=== PATIENT | female | born 1985 | race American Indian/Alaskan Native ===

== ENCOUNTER 2017-12-21 11:37 | Emergency (ER) | payer BC ==
[2017-12-21 11:54] VITALS: BP 141/86
--- NOTE | 2017-12-21 12:23 | Emergency Department Report ---
ED Burn/Smoke HPI - General Chief complaint: Extremity Injury, Lower Stated complaint: RIGHT FOOT INJURY Time Seen by Provider: 12/21/17 12:15 Source: patient Mode of arrival: Ambulatory Limitations: No Limitations - History of Present Illness Initial comments: Patient suffered a burn to the right dorsum of the foot just proximal to the toes approximately 1 week ago. Patient been using Silvadene cream and has been doing relatively well however the last several days she has noted some purulent drainage increased pain. Patient denies any fevers chills nausea vomiting at this time. Patient states pain is worse when she walks. Patient's pain is a 7 out of 10 and throbbing. - Related Data Previous Rx's Medication Instructions Recorded Last Taken Type Clindamycin [Clindamycin CAP] 300 mg PO Q8H 7 Days cap 12/21/17 Unknown Rx Ibuprofen [Motrin] 600 mg PO Q8H PRN #20 tablet 12/21/17 Unknown Rx traMADol [Ultram] 50 mg PO Q6HR PRN #12 tablet 12/21/17 Unknown Rx Allergies Allergy/AdvReac Type Severity Reaction Status Date / Time No Known Allergies Allergy Verified 12/21/17 11:54 Burn HPI - History Stated Complaint: RIGHT FOOT INJURY Chief Complaint: Extremity Injury, Lower Time Seen by Provider: 12/21/17 12:15 - Home Meds and Allergies Home Medications: Previous Rx's Medication Instructions Recorded Last Taken Type Clindamycin [Clindamycin CAP] 300 mg PO Q8H 7 Days cap 12/21/17 Unknown Rx Ibuprofen [Motrin] 600 mg PO Q8H PRN #20 tablet 12/21/17 Unknown Rx traMADol [Ultram] 50 mg PO Q6HR PRN #12 tablet 12/21/17 Unknown Rx Allergies/Adverse Reactions: Allergies Allergy/AdvReac Type Severity Reaction Status Date / Time No Known Allergies Allergy Verified 12/21/17 11:54 ED Review of Systems ROS: Stated complaint: RIGHT FOOT INJURY Other details as noted in HPI Comment: All other systems reviewed and negative ED Past Medical Hx - Past Medical History Previous Medical History?: No - Surgical History Past Surgical History?: No - Social History Smoking Status: Never Smoker Substance Use Type: Alcohol - Medications Home Medications: Home Medications Medication Instructions Recorded Confirmed Last Taken Type Clindamycin [Clindamycin CAP] 300 mg PO Q8H 7 Days cap 12/21/17 Unknown Rx Ibuprofen [Motrin] 600 mg PO Q8H PRN #20 tablet 12/21/17 Unknown Rx traMADol [Ultram] 50 mg PO Q6HR PRN #12 tablet 12/21/17 Unknown Rx ED Physical Exam - General Limitations: No Limitations General appearance: alert, in no apparent distress - Head Head exam: Present: atraumatic, normocephalic - Eye Eye exam: Present: normal appearance - ENT ENT exam: Present: mucous membranes moist - Neck Neck exam: Present: normal inspection - Respiratory Respiratory exam: Present: normal lung sounds bilaterally. Absent: respiratory distress - Cardiovascular Cardiovascular Exam: Present: regular rate, normal rhythm. Absent: systolic murmur, diastolic murmur, rubs, gallop - GI/Abdominal GI/Abdominal exam: Present: soft, normal bowel sounds - Extremities Exam Extremities exam: Present: normal inspection - Back Exam Back exam: Present: normal inspection - Neurological Exam Neurological exam: Present: alert, oriented X3 - Psychiatric Psychiatric exam: Present: normal affect, normal mood - Skin Skin exam: Present: warm, dry, intact, normal color, other (on the dorsum of the right foot just adjacent to the toes patient has a burn that is in mental status healing. Good granulation tissue however centrally there is approximately a nickel-sized area of erythema is surface purulence.). Absent: rash ED Course Vital Signs 12/21/17 11:49 Temperature 98.7 F Pulse Rate 82 Respiratory 16 Rate Blood Pressure 141/86 O2 Sat by Pulse 100 Oximetry ED Medical Decision Making - Medical Decision Making Pt to be started on antibiotics for possible early infection. Patient also given meds for pain control and be discharged home. Critical care attestation.: If time is entered above; I have spent that time in minutes in the direct care of this critically ill patient, excluding procedure time. ED Disposition Clinical Impression: Cellulitis Qualifiers: Site of cellulitis: extremity Site of cellulitis of extremity: lower extremity Laterality: right Qualified Code(s): L03.115 - Cellulitis of right lower limb Disposition: - TO HOME OR SELFCARE Is pt being admited?: No Does the pt Need Aspirin: No Condition: Stable Instructions: Partial Thickness Burn (ED), Cellulitis (ED) Referrals: PRIMARY CARE, [Primary Care Provider] - 3-5 Days
[2017-12-21] MEDS ORDERED: MOTRIN PO ONE (12:36)
--- NOTE | 2017-12-21 13:08 | Emergency Department Report ---
ED Extremity Problem HPI - General Chief complaint: Extremity Injury, Lower Stated complaint: RIGHT FOOT INJURY Time Seen by Provider: 12/21/17 12:15 Source: patient Mode of arrival: Ambulatory Limitations: No Limitations - History of Present Illness Initial comments: Patient is a 32-year-old female who is presenting with a right foot injury. Patient states she was walking up some stairs was an open top shoes and she hit the concrete and scraped the top of her foot and fell. Patient states that the pain is throbbing sensation is 6 out of 10 in severity. It is very minimal bleeding with the scraped. Patient is able to bear weight but with a limp. Patient has no other injuries at this time. Severity scale (0 -10): 6 - Related Data Previous Rx's Medication Instructions Recorded Last Taken Type Ibuprofen [Motrin] 600 mg PO Q8H PRN #20 tablet 12/21/17 Unknown Rx traMADol [Ultram] 50 mg PO Q6HR PRN #12 tablet 12/21/17 Unknown Rx Allergies Allergy/AdvReac Type Severity Reaction Status Date / Time No Known Allergies Allergy Verified 12/21/17 11:54 ED Review of Systems ROS: Stated complaint: RIGHT FOOT INJURY Other details as noted in HPI Comment: All other systems reviewed and negative ED Past Medical Hx - Past Medical History Previous Medical History?: No - Surgical History Past Surgical History?: No - Social History Smoking Status: Never Smoker Substance Use Type: Alcohol - Medications Home Medications: Home Medications Medication Instructions Recorded Confirmed Last Taken Type Ibuprofen [Motrin] 600 mg PO Q8H PRN #20 tablet 12/21/17 Unknown Rx traMADol [Ultram] 50 mg PO Q6HR PRN #12 tablet 12/21/17 Unknown Rx ED Physical Exam - General Limitations: No Limitations General appearance: alert, in no apparent distress - Head Head exam: Present: atraumatic, normocephalic - Eye Eye exam: Present: normal appearance - ENT ENT exam: Present: mucous membranes moist - Neck Neck exam: Present: normal inspection - Respiratory Respiratory exam: Present: normal lung sounds bilaterally. Absent: respiratory distress, wheezes, rales, rhonchi - Cardiovascular Cardiovascular Exam: Present: regular rate, normal rhythm. Absent: systolic murmur, diastolic murmur, rubs, gallop - GI/Abdominal GI/Abdominal exam: Present: soft, normal bowel sounds - Extremities Exam Extremities exam: Present: normal inspection, other (patient has an abrasion to the mid dorsum of the right foot. Patient has pain with palpation diffusely. Patient is able to move her toes but with decreased range of motion secondary to pain.) - Back Exam Back exam: Present: normal inspection - Neurological Exam Neurological exam: Present: alert, oriented X3 - Psychiatric Psychiatric exam: Present: normal affect, normal mood - Skin Skin exam: Present: warm, dry, intact, normal color. Absent: rash ED Course Vital Signs 12/21/17 12/21/17 11:49 12:41 Temperature 98.7 F Pulse Rate 82 Respiratory 16 20 Rate Blood Pressure 141/86 O2 Sat by Pulse 100 Oximetry ED Medical Decision Making - Radiology Data interpreted by me: X-ray of the right foot shows no acute process - Medical Decision Making No fracture was seen with the patient's foot. Patient will be splinted with associated and given meds for symptomatic relief. Critical care attestation.: If time is entered above; I have spent that time in minutes in the direct care of this critically ill patient, excluding procedure time. ED Disposition Clinical Impression: Abrasion, Other sprain of foot Disposition: DC-01 TO HOME OR SELFCARE Is pt being admited?: No Does the pt Need Aspirin: No Condition: Stable Instructions: Abrasion (ED), Foot Sprain (ED) Prescriptions: Ibuprofen [Motrin] 600 mg PO Q8H PRN #20 tablet PRN Reason: Pain traMADol [Ultram] 50 mg PO Q6HR PRN #12 tablet PRN Reason: Pain Referrals: PRIMARY CARE,MD [Primary Care Provider] - 3-5 Days
--- NOTE | 2017-12-21 16:28 | XRay Report ---
FINAL REPORT EXAM: XR FOOT 3+V RT HISTORY: injury/ RT FOOT PAIN TECHNIQUE: Three views right foot. PRIORS: None currently available. FINDINGS: There is no acute fracture. There is no evidence for healing fracture. There is no acute dislocation. Joints in anatomical position. No significant arthrosis. Small Achilles enthesophyte. There is no cortical destruction to suggest osteomyelitis. There are no suspicious osseous lesions. There are no radiopaque foreign objects. IMPRESSION: No acute osseous findings. Small Achilles enthesophyte.
== END 2017-12-21 14:42 | disposition home or self-care (01) ==
LOC: ED 11:37
DX: S93.601A Unspecified sprain of right foot, initial encounter (principal); W18.09XA Striking against other object with subsequent fall, initial encounter; Y93.89 Activity, other specified; Y99.8 Other external cause status; Y92.89 Other specified places as the place of occurrence of the external cause

== ENCOUNTER 2019-02-27 06:39 | Inpatient (IN) | payer BC, MEDICAID ==
[2019-02-27 08:47] LABS: Basophils # (Auto) 0.1 K/mm3 (0.0-0.1); Basophils % (Auto) 0.5 % (0.0-1.8); Eosinophils # (Auto) 0.1 K/mm3 (0.0-0.4); Eosinophils % (Auto) 0.5 % (0.0-4.3); Hematocrit 40.1 % (30.3-42.9); Hemoglobin 13.5 gm/dl (10.1-14.3); Lymphocytes # (Auto) 1.4 K/mm3 (1.2-5.4); Lymphocytes % (Auto) 13.1 % (13.4-35.0); Mean Corpuscular HGB Conc 34 % (30-34); Mean Corpuscular Volume 93 fl (79-97); Monocytes # (Auto) 0.5 K/mm3 (0.0-0.8); Monocytes % (Auto) 5.1 % (0.0-7.3); Platelet Count 267 K/mm3 (140-440); Red Cell Distribution Width 13.9 % (13.2-15.2)
[2019-02-27] MEDS ORDERED: SUBLIMAZE IV PRN (09:00)
[2019-02-27] MEDS: LACTATED RINGERS 1,000 ML IV SCH ×2 (09:59→18:20)
[2019-02-27] MEDS ORDERED: AMPICILLIN/NS 2 GM/100 ML 2 GM/100 ML BAG IV ONE (10:00)
[2019-02-27] MEDS ORDERED: PITOCin/NS 30 UNIT/500ML 30 UNITS/500 ML BAG IV SCH (10:00)
[2019-02-27] MEDS ORDERED: STADOL IV PRN (16:54)
[2019-02-27] MEDS ORDERED: ZOFRAN ONE (17:00)
[2019-02-27] MEDS ORDERED: PHENERGAN PO ONE (17:00)
[2019-02-27] MEDS ORDERED: NARCAN 2 MG/2 ML IV PRN (20:28)
--- NOTE | 2019-02-27 20:30 | Anesthesia Consultation ---
Anesthesia Consult and Med Hx Date of service: 02/27/19 - Airway Anesthetic Teeth Evaluation: Good ROM Head & Neck: Adequate Mental/Hyoid Distance: Adequate Mallampati Class: Class II Intubation Access Assessment: Probably Good - Pulmonary Exam CTA: Yes - Cardiac Exam Cardiac Exam: RRR - Pre-Operative Health Status ASA Pre-Surgery Classification: ASA2 Proposed Anesthetic Plan: Epidural - Pulmonary Hx Asthma: No COPD: No Hx Pneumonia: No - Cardiovascular System Hx Hypertension: No - Central Nervous System Hx Seizures: No Hx Psychiatric Problems: No - Endocrine Hx Renal Disease: No Hx End Stage Renal Disease: No Hx Hypothyroidism: No Hx Hyperthyroidism: No - Hematic Hx Anemia: No Hx Sickle Cell Disease: No - Other Systems Hx Alcohol Use: No Hx Obesity: Yes
[2019-02-27] MEDS ORDERED: fentaNYL-BUPIV 2 MCG/ML-0.125% 200 MCG/100 ML BAG EPIDURAL SCH (21:00)
[2019-02-28] MEDS ORDERED: PITOCin/NS 20 UNIT/1000ML DRIP 20,000 MILLIUNITS/1,000 ML BAG IV ONE ×2 (00:18→02:36)
--- NOTE | 2019-02-28 00:25 | History and Physical Report ---
History of Present Illness Date of examination: 02/28/19 Date of admission: 02/27/2019 Chief complaint: My water broke History of present illness: Pt is a 33 year old who presents in with SROm at 38.6 weeks and EDc 03/07/2019. She has had an uncomplicated course. She is GBS negative. Past History Past Medical History: other (PCOS) Past Surgical History: no surgical history THERMAL MOLDER History: herpes Family/Genetic History: none Social history: - Obstetrical History Expected Date of Delivery: 03/07/19 Actual Gestation: 39 Week(s) 0 Day(s) : 1 Medications and Allergies Allergies Allergy/AdvReac Type Severity Reaction Status Date / Time pollen extracts Allergy Itching Verified 02/27/19 08:18 Home Medications Medication Instructions Recorded Confirmed Last Taken Type No Known Home Medications [No 02/27/19 02/27/19 Unknown History Reported Home Medications] Active Meds: Active Medications Butorphanol Tartrate (Stadol) 2 mg IV Q2H PRN PRN Reason: Labor Pain Last Admin: 02/27/19 17:10 Dose: 2 mg Documented by: Ephedrine Sulfate (Ephedrine Sulfate) 10 mg IV Q2M PRN PRN Reason: Hypotension Fentanyl (Sublimaze) 100 mcg IV ONCE PRN PRN Reason: Labor Pain Last Admin: 02/27/19 13:36 Dose: 100 mcg Documented by: Lactated Ringer's (Lactated Ringers) 1,000 mls @ 125 mls/hr IV DIRECT DAVID Last Admin: 02/27/19 18:20 Dose: 125 mls/hr Documented by: Oxytocin/Sodium Chloride (Pitocin/Ns 30 Unit/500ml) 30 units in 500 mls @ 4 mls/hr IV TITR DAVID; Protocol Last Titration: 02/27/19 22:46 Dose: 2 milliunits/min, 2 mls/hr Documented by: Fentanyl/Bupivacaine/Sodium Chlor (Fentanyl-Bupiv 2 Mcg/Ml-0.125%) 200 mcg in 100 mls @ 12 mls/hr EPIDURAL TITR DAVID; Protocol Last Admin: 02/27/19 21:43 Dose: 12 mls/hr Documented by: Naloxone HCl (Narcan 2 Mg/2 Ml) 0.2 mg IV Q5M PRN PRN Reason: Respiratory sedation Review of Systems All systems: negative Constitutional: fatigue, lethargy Respiratory: shortness of breath Genitourinary: leakage of fluid, contractions Rectal Exam: deferred - Vital Signs Vital signs: Vital Signs Pulse BP 81 134/81 02/27/19 07:04 02/27/19 07:04 Temp Pulse Resp BP Pulse Ox 99.3 F 63 20 118/67 100 02/27/19 16:26 02/28/19 00:16 02/27/19 08:15 02/28/19 00:14 02/28/19 00:16 - Physical Exam Breasts: Positive: deferred Cardiovascular: Regular rate, Normal S1, Normal S2 Lungs: Positive: Clear to auscultation, Normal air movement Abdomen: Positive: normal appearance, soft, normal bowel sounds Genitourinary (Female): Positive: normal external genitalia, normal perenium Vulva: both: normal Vagina: Positive: normal moisture Uterus: Positive: normal size - Obstetrical FHR: auscultation normal Cervical Dilatation: 1 Cervical Effacement Percentage: 90 station: -2 Uterine Contraction Pattern: Irregular Uterine Contraction Intensity: Moderate Results Result Diagrams: 02/27/19 08:30 Abnormal lab results 02/27/19 Range/Units 08:30 Lymph % (Auto) 13.1 L (13.4-35.0) % Seg Neutrophils % 80.8 H (40.0-70.0) % Seg Neutrophils # 8.5 H (1.8-7.7) K/mm3 All other labs normal. Assessment and Plan IUP at 38.6 weeks with prom. Admit to L&D. Augment with pitocin. Anticipate .
--- NOTE | 2019-02-28 02:02 | Procedure Note ---
OB Delivery Note - Delivery Date of Delivery: 02/28/19 Surgeon: NAYAN WRIGHT Estimated blood loss: 200cc - Vaginal Delivery presentation: vertex Delivery position: OA Intrapartum events: PROM->1hr before delivery Delivery induction: none Delivery augmentation: pitocin Delivery monitor: external FHT, external uterine Route of delivery: Delivery placenta: spontaneous Delivery cord: 3 umbilical vessels Episiotomy: none Delivery laceration: vaginal side wall Anesthesia: epidural Delivery comments: Viable female delivered over intact perineum with apgars 8,9 and weirght 2481grams/ 5 pounds 8 ounces at 0136. placed on maternal abdomen. Cord clamped and cut when done pulsating. Placenta delivered spontaneously and intact with 3vc. Periurethral Lacerations hemostatic and not repaired. Pt tolerated procedure well. Excellent hemostasis. - Infant A at 1 minute: 8 at 5 minutes: 9 Gender: Female
[2019-02-28] MEDS ORDERED: DULCOLAX PR PRN (05:23)
[2019-02-28] MEDS ORDERED: PHENERGAN PR PRN (05:23)
[2019-02-28] MEDS ORDERED: SODIUM CHLORIDE FLUSH SYRINGE 10 ML IV NR (05:23)
[2019-02-28] MEDS ORDERED: TYLENOL PO PRN (05:23)
[2019-02-28] MEDS ORDERED: ZOFRAN IV PRN (05:23)
[2019-02-28] MEDS ORDERED: PHENERGAN PO PRN (05:23)
[2019-02-28] MEDS ORDERED: BENADRYL PO PRN (05:23)
[2019-02-28] MEDS ORDERED: TUCKS PAD TP PRN (05:23)
[2019-02-28] MEDS ORDERED: MILK OF MAGNESIA PO PRN (05:23)
[2019-02-28] MEDS ORDERED: LANSINOH TP PRN (05:23)
[2019-02-28] MEDS ORDERED: NORCO 5/325 PO PRN (05:23)
[2019-02-28] MEDS ORDERED: PITOCin/NS 20 UNIT/1000ML DRIP 20 UNITS/1,000 ML BAG IV SCH (06:00)
[2019-02-28] MEDS: COLACE PO SCH ×2 (10:23→23:15)
[2019-02-28] MEDS: PRENATAL VITAMIN PO SCH ×2 (10:23→10:31)
[2019-02-28] MEDS: IBUPROFEN PO SCH ×4 (10:32→23:15)
[2019-02-28 15:05] LABS: Hematocrit 37.1 % (30.3-42.9); Hemoglobin 12.3 gm/dl (10.1-14.3)
[2019-03-01] MEDS: IBUPROFEN PO SCH (05:05)
--- NOTE | 2019-03-01 08:37 | Progress Note ---
Assessment and Plan PPD 1 s/p . doing well. Plan for discharge on today if baby ready to go. Pt given nipple shield to liner helper with nursing. Subjective - Subjective Date of service: 03/01/19 Interval history: Pt is a 33 year old at PPD1. Pt is trying to breastfeed but having difficulties due to flattened nipples. Patient reports: appetite normal, voiding normally, pain well controlled, ambulating normally : doing well Objective - Vital Signs Latest vital signs: Vital Signs Temp Pulse Resp BP BP Pulse Ox 02/28/19 17:43 99.0 F 82 18 126/67 98 02/28/19 08:39 98.2 F 79 18 119/63 96 Intake and Output 02/28/19 03/01/19 03/01/19 22:59 06:59 14:59 Intake Total 1080 Balance 1080 Intake: Oral 360 Intake, Free Water 720 Other: Total, Intake Amount 360 # Voids Void 1 - Exam Breasts: Present: deferred Cardiovascular: Present: Regular rate, Normal S1, Normal S2 Lungs: Present: Clear to auscultation, Normal air movement Uterus: Present: normal, firm Extremities: Present: normal
--- NOTE | 2019-03-01 08:42 | Discharge Summary ---
Providers - Providers Date of Admission: 02/28/19 02:12 Date of discharge: 03/01/19 Attending physician: NAYAN WRIGHT Primary care physician: NAYAN WRIGHT Hospitalization Reason for admission: active labor Delivery: Laceration: none Other procedures: tubal ligation complications: none Discharge diagnosis: IUP at term delivered baby: female Hospital course: unremarkable Condition at discharge: Good Disposition: DC-01 TO HOME OR SELFCARE Plan - Discharge Medications Prescriptions: Ibuprofen [Motrin] 800 mg PO Q8HR PRN #40 tablet PRN Reason: Pain, Moderate (4-6) HYDROcodone/APAP 5-325 [[place] 5/325] 1 each PO Q4HR PRN #15 tablet PRN Reason: Pain - Provider Discharge Summary Activity: routine, no sex for 6 weeks, no heavy lifting 4 weeks, no strenuous exercise Diet: routine Instructions: routine Additional instructions: [] Smoking cessation referral if applicable(refer to patient education folder for contact #) [] Refer to [facility]'s [facility] Booklet Call your doctor immediately for: * Fever > 100.5 * Heavy vaginal bleeding ( >1 pad per hour) * Severe persistent headache * Shortness of breath * Reddened, hot, painful area to leg or breast * Drainage or odor from incision. * Keep incision clean and dry at all times and follow doctor's instructions regarding bathing/showering - Follow up plan Follow up: NAYAN WRIGHT MD [Primary Care Provider] - 6 Weeks
[2019-03-01] MEDS: PRENATAL VITAMIN PO SCH (09:50)
[2019-03-01] MEDS: COLACE PO SCH (09:50)
[2019-03-01 13:50] VITALS: BP 132/74
--- NOTE | 2019-03-02 10:15 | Post Anesthesia Evaluation ---
- Post Anesthesia Evaluation Patient Participated: Yes Airway Patent: Yes Stable Respiratory Function: Yes Nausea/Vomiting: No Temp > 96.8F: Yes Pain Manageable: Yes Adequeate Hydration: Yes Anesthesia Complications: No Block Receding Appropriately: Yes Patient on Ventilator: No
== END 2019-03-01 13:30 | disposition home or self-care (01) | DRG 806 ==
LOC: TRG 06:39 → LD 08:56 → TRG 02-28 02:10 → LD 02-28 02:12 → OB 02-28 05:19
PROVIDERS: ADMIT Obstetrics & Gynecology; ATTEND Obstetrics & Gynecology
PROC: 10E0XZZ Delivery of Products of Conception, External Approach (ICD-10-PCS; principal; 2019-02-28)
PROC: 3E0R3BZ Introduction of Anesthetic Agent into Spinal Canal, Percutaneous Approach (ICD-10-PCS; 2019-02-28)
PROC: 00HU33Z Insertion of Infusion Device into Spinal Canal, Percutaneous Approach (ICD-10-PCS; 2019-02-28)
DX: O42.02 Full-term premature rupture of membranes, onset of labor within 24 hours of rupture (principal); O71.4 Obstetric high vaginal laceration alone; Z37.0 Single live birth; Z3A.38 38 weeks gestation of pregnancy; Z91.018 Allergy to other foods
CPT/HCPCS: 36415; 59025; 85014; 85018; 85025; 86592; 86850; 86900; 86901; G0378; J0290; J0595; J2405; J2590; J3010; J7120; Q0169